=== PATIENT | female | born 1985 | race Caucasian/White ===

== ENCOUNTER 2017-03-17 14:24 | Emergency (ER) | payer MEDICARE, MEDICAID ==
[2017-03-17] MEDS ORDERED: THIAMINE 100 MG TAB PO ONE (15:08)
[2017-03-17] MEDS ORDERED: FOLIC ACID 1 MG TAB PO ONE (15:11)
[2017-03-17] MEDS ORDERED: FOLIC ACID 1 MG TAB ONE (15:14)
[2017-03-17] MEDS ORDERED: THIAMINE 100 MG TAB ONE (15:14)
[2017-03-17 15:24] LABS: BASOPHILS % (AUTO) 1 % (0-3); EOSINOPHILS % (AUTO) 3 % (0-9); HEMATOCRIT 43 % (35-47); MEAN CORPUSCULAR HGB CONC 33.4 gm/dl (32.0-36.0); MEAN CORPUSCULAR VOLUME 90 fL (81-99); MONOCYTES % (AUTO) 6.2 % (0-12); NEUTROPHILS % (AUTO) 62.5 % (37-80)
[2017-03-17 15:45] LABS: CALCIUM 8.4 mg/dl (8.5-10.1); GLOM FILT RATE 97 mL/min (>60); MAGNESIUM 1.9 mg/dl (1.8-2.4); POTASSIUM 4.2 mMol/L (3.5-5.1); SODIUM 141 mMol/L (136-145); THYROID STIMULATING HORMONE 0.751 uIU/ml (0.358-3.740)
[2017-03-17 15:47] LABS: APPEARANCE,URINE Clear; BILIRUBIN,URINE NEGATIVE (NEGATIVE); COLOR,URINE Yellow; GLUCOSE, URINE (UA) NEGATIVE (NEGATIVE); KETONES,URINE NEGATIVE (NEGATIVE); LEUKOCYTE ESTERASE ,URINE NEGATIVE (NEGATIVE); NITRATE,URINE NEGATIVE (NEGATIVE); OCCULT BLOOD,URINE TRACE INTACT (NEG-TRACE); UROBILINOGEN,URINE 0.2 (0.2-1.0 EU)
[2017-03-17 15:56] LABS: METHADONE NEGATIVE (NEGATIVE); TRICYCLIC ANTIDEPRESSANTS NEGATIVE (NEGATIVE)
[2017-03-17 15:57] LABS: AMPHETAMINES NEGATIVE (NEGATIVE); OPIATES(OP13) NEGATIVE (NEGATIVE); OXYCODONE(OXY) NEGATIVE (NEGATIVE); PROPOXYPHENE(PPX) NEGATIVE (NEGATIVE)
[2017-03-17 17:54] LABS: ALBUMIN 3.6 gm/dl (3.4-5.0); ALT 20 IU/L (14-63); BILIRUBIN,DIRECT < 0.1 mg/dl (0.0-0.2)
[2017-03-17 20:02] VITALS: BP 122/82; PULSE 86; RESP 16; TEMP 97; O2SAT 98
== END 2017-03-17 21:19 | disposition short-term general hospital (02) | DRG 918 ==
LOC: ED 14:24
DX: T42.4X2A Poisoning by benzodiazepines, intentional self-harm, initial encounter (principal); D72.829 Elevated white blood cell count, unspecified; F10.10 Alcohol abuse, uncomplicated; Z91.5 Personal history of self-harm; Y90.0 Blood alcohol level of less than 20 mg/100 ml; F31.9 Bipolar disorder, unspecified; F41.9 Anxiety disorder, unspecified; F60.9 Personality disorder, unspecified
CPT/HCPCS: 36415; 70450; 80048; 80076; 80305; 80307; 81001; 83735; 84443; 84703; 85025; 99285; A9270-GY

== ENCOUNTER 2017-04-17 18:35 | Emergency (ER) | payer MEDICARE, MEDICAID ==
[2017-04-17] MEDS ORDERED: ALBUTEROL NEB SOL 2.5MG/3ML 1 VIAL SOL ONE ×2 (18:48→19:17)
[2017-04-17] MEDS ORDERED: SOLUMEDROL 125 MG/2 ML 125 MG/2 ML PDS IV ONE (18:50)
[2017-04-17] MEDS ORDERED: LORAZEPAM 2 MG/ML SOL IV ONE (18:51)
[2017-04-17] MEDS ORDERED: LORAZEPAM 2 MG/ML SOL ONE ×2 (18:56→19:57)
[2017-04-17] MEDS ORDERED: SOLUMEDROL 125 MG/2 ML 125 MG/2 ML PDS ONE (18:56)
[2017-04-17 19:01] LABS: BASOPHILS % (AUTO) 0 % (0-3); EOSINOPHILS % (AUTO) 0 % (0-9); HEMATOCRIT 41 % (35-47); MEAN CORPUSCULAR VOLUME 92 fL (81-99); MONOCYTES % (AUTO) 8.2 % (0-12); NEUTROPHILS % (AUTO) 74.4 % (37-80)
[2017-04-17 19:06] LABS: ABG PH 7.38 (7.35-7.45)
[2017-04-17] MEDS ORDERED: ALBUTEROL NEB SOL 2.5MG/3ML 1 VIAL SOL NEB ONE ×2 (19:09→19:18)
[2017-04-17 19:16] LABS: ALBUMIN 3.5 gm/dl (3.4-5.0); ALT 54 IU/L (14-63); CALCIUM 8.5 mg/dl (8.5-10.1); GLOM FILT RATE 98 mL/min (>60); POTASSIUM 4.2 mMol/L (3.5-5.1); SODIUM 140 mMol/L (136-145)
[2017-04-17] MEDS ORDERED: ALBUTEROL/IPRATROPIUM 1 VIAL SOL ONE (19:17)
[2017-04-17] MEDS ORDERED: ALBUTEROL/IPRATROPIUM 1 VIAL SOL INH ONE (19:18)
[2017-04-17] MEDS ORDERED: MAGNESIUM SULFATE 5 GM/10 ML SOL ONE (19:40)
[2017-04-17] MEDS ORDERED: MAGNESIUM SULFATE 5 GM/10 ML SOL IV ONE (19:50)
[2017-04-17] MEDS ORDERED: LIDOCAINE HCL 2% (100 MG) CARP ONE (19:54)
[2017-04-17] MEDS ORDERED: KETAMINE HYDROCHLORIDE 50 MG/ML SOL ONE (19:54)
[2017-04-17] MEDS ORDERED: SUCCINYLCHOLINE CHLORIDE 20 MG/ML SOL IV ONE (19:56)
[2017-04-17] MEDS ORDERED: MORPHINE SULFATE 10 MG/ML SOL ONE (19:59)
[2017-04-17] MEDS ORDERED: LORAZEPAM 2 MG/ML 10ML MDV 2 MG/ML VIAL IV ONE (20:00)
[2017-04-17] MEDS ORDERED: MORPHINE SULFATE 10 MG/ML SOL IV ONE (20:00)
[2017-04-17] MEDS ORDERED: CEFTRIAXONE 1 GM PDS ONE (20:06)
[2017-04-17] MEDS ORDERED: CEFTRIAXONE 1 GM PDS 1 GM in SODIUM CHLORIDE 0.9% 50 ML 50 ML IV ONE (20:08)
[2017-04-17 21:00] VITALS: BP 146/98; PULSE 120; RESP 26; O2SAT 96
[2017-04-17 21:01] VITALS: TEMP 99.4
== END 2017-04-17 20:27 | disposition short-term general hospital (02) | DRG 204 ==
LOC: ED 18:35
DX: R06.03 Acute respiratory distress (principal)
CPT/HCPCS: 36600; 71045; 80053; 80307; 82803; 84484; 85025; 85378; 87040; 93005; 96374; 96375; 99291; J0330; J0696; J2001; J2060; J2270; J2930; J3475; J7603; J3490

== ENCOUNTER 2017-04-27 23:40 | Emergency (ER) | payer MEDICARE, MEDICAID ==
[2017-04-27 23:46] VITALS: TEMP 99.9
[2017-04-27] MEDS ORDERED: ALBUTEROL/IPRATROPIUM 1 VIAL SOL ONE (23:57)
[2017-04-27] MEDS ORDERED: ALBUTEROL/IPRATROPIUM 1 VIAL SOL INH ONE (23:59)
[2017-04-28 00:06] VITALS: RESP 18
[2017-04-28 00:32] VITALS: BP 129/92; PULSE 86; O2SAT 97
== END 2017-04-28 00:36 | disposition home or self-care (01) | DRG 203 ==
LOC: ED 23:40
DX: J45.909 Unspecified asthma, uncomplicated (principal)
CPT/HCPCS: 99282

== ENCOUNTER 2017-05-19 21:38 | Emergency (ER) | payer MEDICARE, MEDICAID ==
[2017-05-19 22:18] VITALS: BP 136/96; PULSE 91; TEMP 98.4; O2SAT 98
[2017-05-19 22:33] LABS: BASOPHILS % (AUTO) 1 % (0-3); EOSINOPHILS % (AUTO) 2 % (0-9); HEMATOCRIT 42 % (35-47); MEAN CORPUSCULAR VOLUME 91 fL (81-99); MONOCYTES % (AUTO) 5.4 % (0-12)
[2017-05-19 22:39] LABS: APPEARANCE,URINE Clear; BILIRUBIN,URINE NEGATIVE (NEGATIVE); COLOR,URINE Yellow; GLUCOSE, URINE (UA) NEGATIVE (NEGATIVE); KETONES,URINE NEGATIVE (NEGATIVE); LEUKOCYTE ESTERASE ,URINE NEGATIVE (NEGATIVE); NITRATE,URINE NEGATIVE (NEGATIVE); OCCULT BLOOD,URINE NEGATIVE (NEG-TRACE); UROBILINOGEN,URINE 0.2 (0.2-1.0 EU)
[2017-05-19 22:46] LABS: RBC,URINE NEG (0-3AV/HPF)
[2017-05-19 22:51] LABS: ALBUMIN 3.2 gm/dl (3.4-5.0); BILIRUBIN,TOTAL 0.2 mg/dl (0.2-1.0); CALCIUM 8.5 mg/dl (8.5-10.1); CREATININE 0.75 mg/dl (0.60-1.00); POTASSIUM 3.7 mMol/L (3.5-5.1)
== END 2017-05-19 23:39 | disposition home or self-care (01) | DRG 552 ==
LOC: ED 21:38
DX: M54.5 Low back pain (principal)
CPT/HCPCS: 36415; 80053; 81001; 84703; 85025; 99282

== ENCOUNTER 2017-11-01 18:44 | Emergency (ER) | payer MEDICARE, MEDICAID ==
[2017-11-01 18:54] VITALS: TEMP 98.7
[2017-11-01] MEDS ORDERED: SODIUM CHLORIDE 0.9% 1000ML 1,000 ML IV SCH (19:30)
[2017-11-01 19:43] LABS: BASOPHILS % (AUTO) 0 % (0-3); EOSINOPHILS % (AUTO) 1 % (0-9); HEMATOCRIT 42 % (35-47); HEMOGLOBIN 13.9 gm/dl (12.0-15.5); LYMPHOCYTES % (AUTO) 25.3 % (10-50); MEAN CORPUSCULAR HEMOGLOBIN 30.6 pg (27.0-32.0); MEAN CORPUSCULAR HGB CONC 33.1 gm/dl (32.0-36.0); MEAN CORPUSCULAR VOLUME 92 fL (81-99); MONOCYTES % (AUTO) 6.5 % (0-12); NEUTROPHILS % (AUTO) 66.5 % (37-80)
[2017-11-01 19:45] LABS: APPEARANCE,URINE Clear; BILIRUBIN,URINE NEGATIVE (NEGATIVE); COLOR,URINE Yellow; GLUCOSE, URINE (UA) NEGATIVE (NEGATIVE); KETONES,URINE NEGATIVE (NEGATIVE); LEUKOCYTE ESTERASE ,URINE NEGATIVE (NEGATIVE); NITRATE,URINE NEGATIVE (NEGATIVE); OCCULT BLOOD,URINE NEGATIVE (NEG-TRACE); UROBILINOGEN,URINE 0.2 (0.2-1.0 EU)
[2017-11-01 19:58] LABS: ALBUMIN 3.1 gm/dl (3.4-5.0); BILIRUBIN,TOTAL 0.2 mg/dl (0.2-1.0); CALCIUM 8.2 mg/dl (8.5-10.1); CARBON DIOXIDE 32.6 mEq/L (21-32); CREATININE 0.67 mg/dl (0.60-1.00); TOTAL PROTEIN 6.7 gm/dl (6.4-8.2)
[2017-11-01 20:01] LABS: CRP INFLAMMATORY 0.16 mg/dl (0.00-0.33); MAGNESIUM 1.9 mg/dl (1.8-2.4)
[2017-11-01 20:02] LABS: BACTERIA TRACE (< 1+); CRYSTALS NEGATIVE (0-3 AVE/HPF); EPITHELIAL CELLS 0-2 (SQUAMOUS); RBC,URINE NEGATIVE (0-3AV/HPF); WBC,URINE NEGATIVE (0-5AV/HPF)
[2017-11-01] MEDS ORDERED: ALBUTEROL/IPRATROPIUM 1 VIAL SOL INH ONE (21:09)
[2017-11-01] MEDS ORDERED: ALBUTEROL/IPRATROPIUM 1 VIAL SOL ONE (21:11)
[2017-11-01] MEDS ORDERED: PREDNISONE 20 MG TAB PO ONE (21:34)
[2017-11-01] MEDS ORDERED: PREDNISONE 20 MG TAB ONE (21:36)
[2017-11-01 21:42] VITALS: PULSE 89; RESP 20; O2SAT 94
[2017-11-01 22:17] VITALS: BP 130/78
== END 2017-11-01 21:49 | disposition home or self-care (01) | DRG 392 ==
LOC: ED 18:44
DX: K52.9 Noninfective gastroenteritis and colitis, unspecified (principal); F17.200 Nicotine dependence, unspecified, uncomplicated; R53.1 Weakness
CPT/HCPCS: 36415; 80053; 81001; 83735; 85025; 96365; 99283; 99284; A9270-GY

== ENCOUNTER 2017-12-26 23:18 | Emergency (ER) | payer MEDICARE, MEDICAID ==
[2017-12-26 23:47] VITALS: RESP 20; TEMP 97.1
[2017-12-26] MEDS ORDERED: PREDNISONE 20 MG TAB ONE (23:56)
[2017-12-26] MEDS ORDERED: ALBUTEROL/IPRATROPIUM 1 VIAL SOL ONE (23:56)
[2017-12-26] MEDS ORDERED: ALBUTEROL/IPRATROPIUM 1 VIAL SOL INH ONE (23:57)
[2017-12-26] MEDS ORDERED: PREDNISONE 20 MG TAB PO ONE (23:57)
[2017-12-27] MEDS ORDERED: PREDNISONE 20 MG TAB ONE (00:03)
[2017-12-27] MEDS ORDERED: PREDNISONE 20 MG TAB PO ONE (00:03)
[2017-12-27 00:23] VITALS: BP 104/67; PULSE 105; O2SAT 95
== END 2017-12-27 00:21 | disposition home or self-care (01) | DRG 203 ==
LOC: ED 23:18
DX: J45.901 Unspecified asthma with (acute) exacerbation (principal); F17.200 Nicotine dependence, unspecified, uncomplicated
CPT/HCPCS: 99283; A9270-GY

== ENCOUNTER 2018-02-06 15:47 | Emergency (ER) | payer MEDICARE, MEDICAID ==
[2018-02-06 16:08] VITALS: RESP 20; TEMP 98.1
[2018-02-06] MEDS ORDERED: ALBUTEROL/IPRATROPIUM 1 VIAL SOL INH ONE (16:15)
[2018-02-06] MEDS ORDERED: ALBUTEROL/IPRATROPIUM 1 VIAL SOL ONE (16:18)
[2018-02-06 17:30] VITALS: BP 109/68; PULSE 71; O2SAT 98
== END 2018-02-06 17:56 | disposition home or self-care (01) | DRG 195 ==
LOC: ED 15:47
DX: R09.1 Pleurisy (principal); R06.02 Shortness of breath; M54.6 Pain in thoracic spine; E11.9 Type 2 diabetes mellitus without complications; R06.2 Wheezing
CPT/HCPCS: 71046; 99283

== ENCOUNTER 2018-02-11 18:07 | Emergency (ER) | payer MEDICARE, MEDICAID ==
[2018-02-11] MEDS ORDERED: MORPHINE SULFATE 10 MG/ML SOL IV ONE (18:23)
[2018-02-11] MEDS ORDERED: SODIUM CHLORIDE 0.9% 1000 ML SOL IV SCH (18:30)
[2018-02-11 18:46] LABS: BASOPHILS % (AUTO) 1 % (0-3); EOSINOPHILS % (AUTO) 2 % (0-9); HEMATOCRIT 42 % (35-47); HEMOGLOBIN 13.8 gm/dl (12.0-15.5); LYMPHOCYTES % (AUTO) 24.6 % (10-50); MEAN CORPUSCULAR HEMOGLOBIN 30.6 pg (27.0-32.0); MEAN CORPUSCULAR HGB CONC 32.9 gm/dl (32.0-36.0); MEAN CORPUSCULAR VOLUME 93 fL (81-99); MONOCYTES % (AUTO) 6.7 % (0-12); NEUTROPHILS % (AUTO) 66.4 % (37-80)
[2018-02-11 18:51] LABS: APPEARANCE,URINE Clear; BILIRUBIN,URINE NEGATIVE (NEGATIVE); COLOR,URINE Yellow; GLUCOSE, URINE (UA) NEGATIVE (NEGATIVE); KETONES,URINE NEGATIVE (NEGATIVE); LEUKOCYTE ESTERASE ,URINE NEGATIVE (NEGATIVE); NITRATE,URINE NEGATIVE (NEGATIVE); OCCULT BLOOD,URINE NEGATIVE (NEG-TRACE); UROBILINOGEN,URINE 0.2 (0.2-1.0 EU)
[2018-02-11 19:00] LABS: BACTERIA TRACE (< 1+); CRYSTALS NEGATIVE (0-3 AVE/HPF); EPITHELIAL CELLS 0-1 (SQUAMOUS); RBC,URINE NEGATIVE (0-3AV/HPF); WBC,URINE NEGATIVE (0-5AV/HPF)
[2018-02-11 19:02] LABS: ALBUMIN 3.3 gm/dl (3.4-5.0); BILIRUBIN,TOTAL 0.2 mg/dl (0.2-1.0); CALCIUM 8.7 mg/dl (8.5-10.1); CARBON DIOXIDE 27.8 mEq/L (21-32); CREATININE 0.76 mg/dl (0.60-1.00); POTASSIUM 3.9 mMol/L (3.5-5.1); TOTAL PROTEIN 6.9 gm/dl (6.4-8.2)
[2018-02-11 19:31] VITALS: TEMP 97.6
[2018-02-11] MEDS ORDERED: KETOROLAC TROMETHAMINE 30 MG/ML SOL IV ONE (20:28)
[2018-02-11] MEDS ORDERED: KETOROLAC TROMETHAMINE 30 MG/ML SOL ONE (20:30)
[2018-02-11 21:16] VITALS: RESP 20
[2018-02-11 21:17] VITALS: BP 134/86; PULSE 94; O2SAT 95
== END 2018-02-11 21:10 | disposition home or self-care (01) | DRG 392 ==
LOC: ED 18:07
DX: K52.9 Noninfective gastroenteritis and colitis, unspecified (principal); F41.9 Anxiety disorder, unspecified; E11.9 Type 2 diabetes mellitus without complications
CPT/HCPCS: 36415; 74177; 80053; 81001; 82150; 84703; 85025; 96365; 96374; 99283; 99284; J1885; Q9967

== ENCOUNTER 2018-02-23 20:07 | Emergency (ER) | payer MEDICARE, MEDICAID ==
[2018-02-23 20:23] VITALS: RESP 20
[2018-02-23 21:03] VITALS: BP 140/91; PULSE 87; TEMP 96.7; O2SAT 96
== END 2018-02-23 21:30 | disposition home or self-care (01) | DRG 880 ==
LOC: ED 20:07
DX: R45.851 Suicidal ideations (principal); E11.9 Type 2 diabetes mellitus without complications
CPT/HCPCS: 99282

== ENCOUNTER 2018-04-10 08:12 | Emergency (ER) | payer MEDICARE, MEDICAID ==
[2018-04-10 08:27] VITALS: TEMP 98.2
[2018-04-10 09:36] VITALS: BP 130/84; PULSE 71; RESP 16; O2SAT 96
== END 2018-04-10 09:38 | disposition home or self-care (01) | DRG 605 ==
LOC: ED 08:12
DX: S90.112A Contusion of left great toe without damage to nail, initial encounter (principal); E11.9 Type 2 diabetes mellitus without complications
CPT/HCPCS: 73660; 99282; 99283

== ENCOUNTER 2018-04-21 20:04 | Emergency (ER) | payer MEDICAID, MEDICARE ==
[2018-04-21 22:47] VITALS: RESP 20; TEMP 99.4
[2018-04-21 23:00] VITALS: BP 129/94; PULSE 79; O2SAT 95
== END 2018-04-21 21:22 | disposition home or self-care (01) | DRG 153 ==
LOC: ED 20:04
DX: J06.9 Acute upper respiratory infection, unspecified (principal); F41.9 Anxiety disorder, unspecified; R06.02 Shortness of breath; E11.9 Type 2 diabetes mellitus without complications
CPT/HCPCS: 99282; 99283

== ENCOUNTER 2018-04-24 19:24 | Emergency (ER) | payer MEDICARE ==
[2018-04-24 19:38] VITALS: RESP 20
[2018-04-24 21:24] VITALS: BP 125/82; PULSE 83; TEMP 96.2; O2SAT 95
[2018-04-24] MEDS ORDERED: CEFTRIAXONE 1 GM PDS IM ONE (22:35)
[2018-04-24] MEDS ORDERED: AZITHROMYCIN 250 MG TAB PO ONE (22:35)
[2018-04-24] MEDS ORDERED: METRONIDAZOLE 250 MG TAB PO ONE (22:36)
[2018-04-24] MEDS ORDERED: CEFTRIAXONE 1 GM PDS ONE (22:39)
[2018-04-24] MEDS ORDERED: AZITHROMYCIN 250 MG TAB ONE (22:40)
[2018-04-24] MEDS ORDERED: METRONIDAZOLE 250 MG TAB ONE ×2 (22:40→22:41)
[2018-04-24] MEDS ORDERED: LIDOCAINE HCL 1% MPF 30 SOL ONE (22:41)
== END 2018-04-24 22:58 | disposition home or self-care (01) | DRG 923 ==
LOC: ED 19:24
DX: T76.21XA Adult sexual abuse, suspected, initial encounter (principal); E11.9 Type 2 diabetes mellitus without complications; E78.5 Hyperlipidemia, unspecified
CPT/HCPCS: 96372; 99283; J0696; A9270-GY; J2001

== ENCOUNTER 2018-05-31 08:24 | Emergency (ER) | payer MEDICARE, MEDICAID ==
[2018-05-31 08:37] VITALS: TEMP 98.1
[2018-05-31 09:15] LABS: BASOPHILS % (AUTO) 1 % (0-3); EOSINOPHILS % (AUTO) 4 % (0-9); HEMATOCRIT 45 % (35-47); HEMOGLOBIN 14.4 gm/dl (12.0-15.5); MEAN CORPUSCULAR HEMOGLOBIN 30.3 pg (27.0-32.0); MEAN CORPUSCULAR HGB CONC 31.9 gm/dl (32.0-36.0); MEAN CORPUSCULAR VOLUME 95 fL (81-99); NEUTROPHILS % (AUTO) 64.9 % (37-80)
[2018-05-31 09:25] VITALS: O2SAT 96
[2018-05-31 10:32] VITALS: BP 115/74; PULSE 69; RESP 16
== END 2018-05-31 10:09 | disposition home or self-care (01) | DRG 206 ==
LOC: ED 08:24
DX: M94.0 Chondrocostal junction syndrome [Tietze] (principal); E11.9 Type 2 diabetes mellitus without complications; E03.9 Hypothyroidism, unspecified
CPT/HCPCS: 36415; 71045; 84484; 85025; 93005; 99283; 99284

== ENCOUNTER 2018-06-15 19:51 | Emergency (ER) | payer MEDICARE, MEDICAID ==
[2018-06-15 20:11] VITALS: RESP 16; TEMP 98.1; O2SAT 95
[2018-06-15 20:23] VITALS: BP 122/82; PULSE 92
[2018-06-15 20:40] LABS: BASOPHILS % (AUTO) 1 % (0-3); EOSINOPHILS % (AUTO) 2 % (0-9); HEMATOCRIT 43 % (35-47); LYMPHOCYTES % (AUTO) 25.9 % (10-50); MEAN CORPUSCULAR HEMOGLOBIN 31.2 pg (27.0-32.0); MEAN CORPUSCULAR HGB CONC 32.6 gm/dl (32.0-36.0); MEAN CORPUSCULAR VOLUME 96 fL (81-99); MONOCYTES % (AUTO) 6.2 % (0-12); NEUTROPHILS % (AUTO) 65.1 % (37-80)
[2018-06-15 21:02] LABS: ALBUMIN 3.2 gm/dl (3.4-5.0); ALKALINE PHOSPHATASE 69 IU/L (46-116); ALT 21 IU/L (14-63); AST 17 IU/L (15-37); BILIRUBIN,TOTAL 0.2 mg/dl (0.2-1.0); BLOOD UREA NITROGEN 10 mg/dl (7-18); CALCIUM 8.4 mg/dl (8.5-10.1); CARBON DIOXIDE 31.6 mEq/L (21-32); CHLORIDE 101 mMol/L (98-107); CREATININE 0.68 mg/dl (0.60-1.00); GLUCOSE 115 mg/dl (74-106); POTASSIUM 3.8 mMol/L (3.5-5.1); SODIUM 139 mMol/L (136-145); TOTAL PROTEIN 6.4 gm/dl (6.4-8.2); TROP I < 0.017 ng/ml (0.000-0.056)
== END 2018-06-15 21:23 | disposition home or self-care (01) | DRG 313 ==
LOC: ED 19:51
DX: R07.9 Chest pain, unspecified (principal); R42 Dizziness and giddiness; E11.9 Type 2 diabetes mellitus without complications
CPT/HCPCS: 36415; 71045; 80053; 84484; 85025; 93005; 99283

== ENCOUNTER 2018-08-20 17:34 | Emergency (ER) | payer MEDICARE, MEDICAID ==
[2018-08-20 17:46] VITALS: TEMP 98
[2018-08-20] MEDS ORDERED: SODIUM CHLORIDE 0.9% 1000ML 1,000 ML IV ONE (18:46)
[2018-08-20 18:59] LABS: BASOPHILS % (AUTO) 0 % (0-3); EOSINOPHILS % (AUTO) 3 % (0-9); HEMATOCRIT 46 % (35-47); HEMOGLOBIN 14.9 gm/dl (12.0-15.5); LYMPHOCYTES % (AUTO) 28.1 % (10-50); MEAN CORPUSCULAR HEMOGLOBIN 30.7 pg (27.0-32.0); MEAN CORPUSCULAR HGB CONC 32.6 gm/dl (32.0-36.0); MEAN CORPUSCULAR VOLUME 94 fL (81-99); MONOCYTES % (AUTO) 10.9 % (0-12); NEUTROPHILS % (AUTO) 57.3 % (37-80)
[2018-08-20 19:15] LABS: ALBUMIN 3.4 gm/dl (3.4-5.0); BILIRUBIN,TOTAL 0.2 mg/dl (0.2-1.0); CALCIUM 8.5 mg/dl (8.5-10.1); CARBON DIOXIDE 31.2 mEq/L (21-32); CREATININE 0.71 mg/dl (0.60-1.00); CRP INFLAMMATORY 1.37 mg/dl (0.00-0.33); POTASSIUM 3.8 mMol/L (3.5-5.1); TOTAL PROTEIN 7.5 gm/dl (6.4-8.2)
[2018-08-20] MEDS ORDERED: SODIUM CHLORIDE 0.9% FLUSH 10 ML SOL IV PRN (19:35)
[2018-08-20] MEDS ORDERED: HYDROMORPHONE HCL 2 MG/ML SOL IV ONE (19:56)
[2018-08-20] MEDS ORDERED: ONDANSETRON HCL 4 MG/2 ML SOL IV ONE (19:56)
[2018-08-20] MEDS ORDERED: HYDROMORPHONE 1 MG/ML SYRINGE ONE (19:58)
[2018-08-20] MEDS ORDERED: ONDANSETRON HCL 4 MG/2 ML SOL ONE (20:03)
[2018-08-20 21:15] VITALS: BP 119/76; PULSE 83; RESP 16; O2SAT 94
== END 2018-08-20 21:27 | disposition home or self-care (01) | DRG 607 ==
LOC: ED 17:34
DX: B00.9 Herpesviral infection, unspecified (principal); K92.1 Melena; R10.9 Unspecified abdominal pain; R59.9 Enlarged lymph nodes, unspecified; E11.9 Type 2 diabetes mellitus without complications
CPT/HCPCS: 74177; 80053; 83690; 84703; 85025; 86140; 96365; 96374; 96375; 99283; 99285; J2405; Q9967; J1170

== ENCOUNTER 2018-08-28 15:26 | Emergency (ER) | payer MEDICARE, MEDICAID ==
[2018-08-28 16:36] VITALS: BP 113/78; PULSE 83; RESP 18; TEMP 97.9; O2SAT 95
[2018-08-28 16:55] LABS: APPEARANCE,URINE Clear; BILIRUBIN,URINE NEGATIVE (NEGATIVE); COLOR,URINE Yellow; GLUCOSE, URINE (UA) NEGATIVE (NEGATIVE); KETONES,URINE NEGATIVE (NEGATIVE); LEUKOCYTE ESTERASE ,URINE NEGATIVE (NEGATIVE); NITRATE,URINE NEGATIVE (NEGATIVE); OCCULT BLOOD,URINE NEGATIVE (NEG-TRACE); UROBILINOGEN,URINE 0.2 (0.2-1.0 EU)
[2018-08-28 17:20] LABS: BACTERIA RARE (< 1+); CRYSTALS NEGATIVE (0-3 AVE/HPF); RBC,URINE NEG (0-3AV/HPF); WBC,URINE NEG (0-5AV/HPF)
[2018-08-28 17:50] LABS: HEMATOCRIT 44 % (35-47); HEMOGLOBIN 14.2 gm/dl (12.0-15.5); MEAN CORPUSCULAR HEMOGLOBIN 31.5 pg (27.0-32.0); MEAN CORPUSCULAR HGB CONC 32.1 gm/dl (32.0-36.0); MEAN CORPUSCULAR VOLUME 98 fL (81-99)
[2018-08-28 17:55] LABS: CREATININE 0.57 mg/dl (0.60-1.00)
[2018-08-28 18:27] LABS: BAND NEUTROPHILS % (MANUAL) 1 %; BASOPHILS % (MANUAL) 0 % (0-3); EOSINOPHILS % (MANUAL) 1 % (0-9); MONOCYTES % (MANUAL) 5 % (0-12); NEUTROPHILS % (MANUAL) 65 % (37-80)
[2018-08-28 18:28] LABS: LYMPHOCYTES % (MANUAL) 28 % (10-50); NORMAL RBCS NORMAL RBCS; PLATELET MORPHOLOGY COMMENT NORMAL
[2018-08-28 23:13] LABS: CALCIUM 8.6 mg/dl (8.5-10.1)
== END 2018-08-28 18:54 | disposition home or self-care (01) | DRG 696 ==
LOC: ED 15:26
DX: R33.9 Retention of urine, unspecified (principal); K59.04 Chronic idiopathic constipation
CPT/HCPCS: 36415; 51798; 80048; 81001; 85007; 85027; 99283; A6446

== ENCOUNTER 2018-09-03 19:33 | Emergency (ER) | payer MEDICARE, MEDICAID ==
[2018-09-03 20:21] VITALS: TEMP 98.6
[2018-09-04 02:16] VITALS: BP 116/92; PULSE 86; RESP 18; O2SAT 95
== END 2018-09-03 22:43 | disposition home or self-care (01) | DRG 696 ==
LOC: ED 19:33
DX: R33.9 Retention of urine, unspecified (principal); E11.9 Type 2 diabetes mellitus without complications
CPT/HCPCS: 99282; 99283

== ENCOUNTER 2018-09-11 16:33 | Emergency (ER) | payer MEDICARE, MEDICAID ==
[2018-09-11 16:52] VITALS: BP 109/72; PULSE 90; RESP 18; TEMP 97.1; O2SAT 94
== END 2018-09-11 17:29 | disposition home or self-care (01) | DRG 696 ==
LOC: ED 16:33
DX: R31.9 Hematuria, unspecified (principal); T85.838A Hemorrhage due to other internal prosthetic devices, implants and grafts, initial encounter; E11.9 Type 2 diabetes mellitus without complications
CPT/HCPCS: 99282

== ENCOUNTER 2018-09-17 11:58 | Emergency (ER) | payer MEDICARE, MEDICAID ==
[2018-09-17 12:20] VITALS: TEMP 97
[2018-09-17] MEDS ORDERED: LIDOCAINE HCL 2% GEL TOP ONE ×2 (12:56→12:58)
[2018-09-17 13:32] VITALS: BP 125/78; PULSE 70; RESP 16; O2SAT 95
== END 2018-09-17 13:25 | disposition home or self-care (01) | DRG 696 ==
LOC: ED 11:58
DX: R33.9 Retention of urine, unspecified (principal); T83.84XA Pain due to genitourinary prosthetic devices, implants and grafts, initial encounter; M51.36 Other intervertebral disc degeneration, lumbar region
CPT/HCPCS: 72158; 99283; A9270-GY; A9585